=== PATIENT | male | born 1940 | race Caucasian/White ===

== ENCOUNTER 2016-09-27 06:46 | Inpatient (IN) | payer MEDICARE, BC ==
--- NOTE | 2016-09-27 07:38 | EDM.PDOC ---
ED HPI GENERAL MEDICAL PROBLEM - General Chief Complaint: Gastrointestinal Problem Stated Complaint: DIAHHREA Time Seen by Provider: 09/27/16 07:32 Source of Information: Reports: Patient, Family History Limitations: Reports: No Limitations - History of Present Illness INITIAL COMMENTS - FREE TEXT/NARRATIVE: Pt developed severe diarrhea last nite and he had 10- 15 stools. He was nauseated but he did not vomit. He had cramps but did not have severe abdomanal pain. He had eaten on the road yesterday. He has not had recent antibiotic. Onset: Other (last nite. ) Duration: Hour(s):, Colic Location: Reports: Abdomen, Other ( severe diarrhea. ) Associated Symptoms: Reports: Other (pt is having muscle cramps. ) Abdominal Pain Score (Numeric/FACES): 4 - Related Data Allergies Allergy/AdvReac Type Severity Reaction Status Date / Time tramadol HCl [From [facility]] Allergy Severe Hives Verified 09/27/16 07:16 Home Meds: Home Meds Omeprazole [priLOSEC OTC] 20 mg PO DAILY 09/08/13 [History] Magnesium 250 mg PO DAILY 10/28/15 [History] Meloxicam [Mobic] 15 mg PO DAILY 10/28/15 [History] Calcium Carbonate/Vitamin D3 [Caltrate 600+D 1500 MG-400 Units] 1 tab PO BID # 60 tablet 09/28/16 [Rx] Past Medical History HEENT History: Reports: Cataract, Impaired Vision Cardiovascular History: Reports: Other (See Below) Other Cardiovascular History: orthostatic hypotension Gastrointestinal History: Reports: GERD, Hiatal Hernia Genitourinary History: Reports: Pyelonephritis, Renal Calculus Musculoskeletal History: Reports: Fracture, Osteoarthritis Endocrine/Metabolic History: Reports: Obesity/BMI 30+ Hematologic History: Reports: Anemia, Blood Transfusion(s) - Infectious Disease History Infectious Disease History: Reports: Chicken Pox, Measles - Past Surgical History HEENT Surgical History: Reports: Cataract Surgery, Tonsillectomy Neurological Surgical History: Reports: Laminectomy, Spinal Fusion Musculoskeletal Surgical History: Reports: Arthroscopic Knee, Knee Replacement, Other (See Below) Other Musculoskeletal Surgeries/Procedures:: left elbow-staph infection Social & Family History - Tobacco Use Smoking Status *Q: Never Smoker Years of Tobacco use: 3 Packs/Tins Daily: 0.5 Second Hand Smoke Exposure: No - Caffeine Use Caffeine Use: Reports: None - Alcohol Use Days Per Week of Alcohol Use: 0 - Recreational Drug Use Recreational Drug Use: No ED ROS GENERAL - Review of Systems Review Of Systems: See Below Constitutional: Reports: Chills, Weakness HEENT: Reports: No Symptoms Respiratory: Reports: No Symptoms Cardiovascular: Reports: No Symptoms Endocrine: Reports: No Symptoms GI/Abdominal: Reports: Diarrhea, Other ( there was no blood in the stool. ) : Reports: No Symptoms Musculoskeletal: Reports: Other (Pt hurt ll over before it started. ) Skin: Reports: No Symptoms ED EXAM, GI/ABD - Physical Exam Exam: See Below Text/Narrative:: Pt arrived with body aches and he has sevre diarrhea. He is now having muscle spasms. Exam Limited By: No Limitations General Appearance: Alert, Mild Distress Eyes: Bilateral: Normal Appearance, EOMI Ears: Normal External Exam Nose: Normal Inspection Throat/Mouth: Normal Inspection Head: Atraumatic Neck: Normal Inspection Respiratory/Chest: No Respiratory Distress Cardiovascular: Regular Rate, Rhythm GI/Abdominal: Soft, Non-Tender, Hyperactive Bowel Sounds (Male) Exam: Deferred Rectal (Males) Exam: Deferred Back Exam: Normal Inspection Extremities: Normal Inspection Neurological: Alert, Oriented, Normal Cognition Psychiatric: Normal Affect Course - Vital Signs Last Recorded V/S: Last Vital Signs Temp 97.6 C H 09/28/16 07:48 Pulse 104 H 09/28/16 09:44 Resp 17 09/28/16 09:00 BP 129/80 09/28/16 09:00 Pulse Ox 94 L 09/28/16 09:00 - Orders/Labs/Meds Labs: Laboratory Tests 09/27/16 09/27/16 09/27/16 Range/Units 07:35 07:38 07:38 WBC 7.1 (4.5-11.0) K/uL RBC 4.68 (4.30-5.90) M/uL Hgb 14.5 (12.0-15.0) g/dL Hct 42.3 (40.0-54.0) % MCV 90 (80-98) fL MCH 31 (27-31) pg MCHC 34 (32-36) % Plt Count 204 (150-400) K/uL Neut % (Auto) 83 H (36-66) % Lymph % (Auto) 7 L (24-44) % [place] % (Auto) 7 H (2-6) % Eos % (Auto) 4 (2-4) % Baso % (Auto) 0 (0-1) % Sodium 141 (140-148) mmol/L Potassium 4.6 (3.6-5.2) mmol/L Chloride 107 (100-108) mmol/L Carbon Dioxide 21 (21-32) mmol/L Anion Gap 13.1 (5.0-14.0) mmol/L BUN 26 H (7-18) mg/dL Creatinine 1.5 H (0.8-1.3) mg/dL Est Cr Clr Drug Dosing 48.09 mL/min Estimated GFR (MDRD) 46 L (>60) Glucose 104 (74-106) mg/dL Calcium 7.8 L (8.5-10.1) mg/dL Magnesium (1.8-2.4) mg/dL Total Bilirubin 0.7 (0.2-1.0) mg/dL AST 20 (15-37) U/L ALT 30 (12-78) U/L Alkaline Phosphatase 58 (46-116) U/L Troponin I < 0.017 (0.000-0.056) ng/mL C-Reactive Protein (0.0-0.3) mg/dL Total Protein 7.3 (6.4-8.2) g/dL Albumin 3.8 (3.4-5.0) g/dL Globulin 3.5 (2.3-3.5) g/dL Albumin/Globulin Ratio 1.1 L (1.2-2.2) Urine Color Urine Appearance Urine pH (4.5-8.0) Ur Specific [place] (1.008-1.030) Urine Protein (NEGATIVE) mg/dL Urine Glucose (UA) (NEGATIVE) mg/dL Urine Ketones (NEGATIVE) mg/dL Urine Occult Blood (NEGATIVE) Urine Nitrite (NEGAITVE) Urine Bilirubin (NEGATIVE) Urine Urobilinogen (NORMAL) mg/dL Ur Leukocyte Esterase (NEGATIVE) Urine RBC (0-5) Urine WBC (0-5) Ur Epithelial Cells Amorphous Sediment Urine Bacteria Urine Mucus 09/27/16 09/27/16 09/27/16 Range/Units 07:38 09:48 10:44 WBC (4.5-11.0) K/uL RBC (4.30-5.90) M/uL Hgb (12.0-15.0) g/dL Hct (40.0-54.0) % MCV (80-98) fL MCH (27-31) pg MCHC (32-36) % Plt Count (150-400) K/uL Neut % (Auto) (36-66) % Lymph % (Auto) (24-44) % [place] % (Auto) (2-6) % Eos % (Auto) (2-4) % Baso % (Auto) (0-1) % Sodium (140-148) mmol/L Potassium (3.6-5.2) mmol/L Chloride (100-108) mmol/L Carbon Dioxide (21-32) mmol/L Anion Gap (5.0-14.0) mmol/L BUN (7-18) mg/dL Creatinine (0.8-1.3) mg/dL Est Cr Clr Drug Dosing mL/min Estimated GFR (MDRD) (>60) Glucose (74-106) mg/dL Calcium (8.5-10.1) mg/dL Magnesium 2.1 (1.8-2.4) mg/dL Total Bilirubin (0.2-1.0) mg/dL AST (15-37) U/L ALT (12-78) U/L Alkaline Phosphatase (46-116) U/L Troponin I (0.000-0.056) ng/mL C-Reactive Protein 0.29 (0.0-0.3) mg/dL Total Protein (6.4-8.2) g/dL Albumin (3.4-5.0) g/dL Globulin (2.3-3.5) g/dL Albumin/Globulin Ratio (1.2-2.2) Urine Color Yellow Urine Appearance Clear Urine pH 5.0 (4.5-8.0) Ur Specific [place] 1.015 (1.008-1.030) Urine Protein Negative (NEGATIVE) mg/dL Urine Glucose (UA) Normal (NEGATIVE) mg/dL Urine Ketones Negative (NEGATIVE) mg/dL Urine Occult Blood Negative (NEGATIVE) Urine Nitrite Negative (NEGAITVE) Urine Bilirubin Negative (NEGATIVE) Urine Urobilinogen Normal (NORMAL) mg/dL Ur Leukocyte Esterase Negative (NEGATIVE) Urine RBC 0-5 (0-5) Urine WBC Not seen (0-5) Ur Epithelial Cells Not seen Amorphous Sediment Not seen Urine Bacteria Not seen Urine Mucus Not seen Meds: Medications Discontinued Medications Generic Name Dose Route Start Last Admin Trade Name Freq PRN Reason Stop Dose Admin Acetaminophen 650 mg 09/27/16 13:25 Tylenol PO Q4H PRN Pain (Mild 1-3)/fever Calcium Carbonate 1 tab 09/28/16 09:00 09/28/16 08:43 Caltrate 600+D 1500 Mg-400 Units PO 1 tab BID YADIRA Administration Diltiazem HCl 10 mg 09/27/16 13:45 09/27/16 14:00 Diltiazem IVPUSH 09/27/16 13:46 10 mg ONETIME ONE Administration Enoxaparin Sodium 40 mg 09/27/16 14:00 09/27/16 14:23 Lovenox SUBCUT 40 mg Q24H YADIRA Administration Sodium Chloride 1,000 mls @ 999 mls/hr 09/27/16 07:45 09/27/16 07:47 Normal Saline IV 999 mls/hr ASDIRECTED YADIRA Administration Sodium Chloride 1,000 mls @ 999 mls/hr 09/27/16 08:30 09/27/16 08:52 Normal Saline IV 999 mls/hr ASDIRECTED YADIRA Administration Sodium Chloride 1,000 mls @ 250 mls/hr 09/27/16 11:00 Normal Saline IV ASDIRECTED YADIRA Diltiazem HCl 100 mg/ Sodium 100 mls @ 5 mls/hr 09/27/16 13:25 Chloride IV TITRATE YADIRA Protocol 5 MG/HR Sodium Chloride 1,000 mls @ 125 mls/hr 09/27/16 13:25 09/28/16 05:55 Normal Saline IV 125 mls/hr ASDIRECTED YADIRA Administration Calcium Gluconate 2 gm/ Sodium 120 mls @ 100 mls/hr 09/28/16 09:00 09/28/16 09:39 Chloride IV 09/28/16 10:11 100 mls/hr ONETIME ONE Administration Loperamide HCl 4 mg 09/27/16 08:59 09/27/16 09:44 Imodium PO 09/27/16 09:00 4 mg ONETIME ONE Administration Magnesium Oxide 200 mg 09/28/16 09:00 09/28/16 08:14 Magnesium Oxide PO 400 mg DAILY YADIRA Administration Meloxicam 15 mg 09/28/16 09:00 09/28/16 08:14 Mobic PO 15 mg DAILY YADIRA Administration Ondansetron HCl 4 mg 09/27/16 08:20 09/27/16 08:24 Zofran IVPUSH 09/27/16 08:21 4 mg ONETIME ONE Administration Ondansetron HCl 4 mg 09/27/16 13:25 09/27/16 20:57 Zofran IV 4 mg Q4H PRN Administration Nausea/Vomiting Oxycodone HCl 5 mg 09/27/16 13:25 Oxycodone PO Q4H PRN Pain (moderate 4-6) Pantoprazole Sodium 40 mg 09/28/16 07:30 09/28/16 07:35 Protonix PO 40 mg ACBREAKFAST YADIRA Administration Sodium Chloride 10 ml 09/27/16 13:25 Saline Flush FLUSH ASDIRECTED PRN Keep Vein Open - Re-Assessments/Exams Free Text/Narrative Re-Assessment/Exam: 09/27/16 08:22 pt looks dehydrated with his electrolytes. He has a normal sinus rhythm. He was tachy to start with. 09/27/16 10:45 He was found to have a pulse of 118. An ekg showed atrial fib and since that time he has been in atrial fib. He does not have a known history of atrial fib. Will plan to admit for evaluation. He is on asa and is not on coumadin therapy. . 09/27/16 10:48 Departure - Departure Time of Disposition: 09:50 Disposition: Admitted As Inpatient 67 Condition: fair Clinical Impression: Atrial fibrillation, Dehydration, Diarrhea - Discharge Information
[2016-09-27] MEDS ORDERED: Sodium Chloride 0.9% 1,000 ML IV SCH ×3 (07:45→11:00)
[2016-09-27] MEDS ORDERED: Ondansetron 4 MG/2 ML SDV IVPUSH ONE (08:20)
[2016-09-27] MEDS ORDERED: Loperamide 2 MG Cap PO ONE (08:59)
[2016-09-27] MEDS ORDERED: Diltiazem 100 MG in Sodium Chloride 0.9% 100 ML IV SCH (13:25)
[2016-09-27] MEDS ORDERED: Sodium Chloride 0.9% 10 ML Syringe FLUSH PRN (13:25)
[2016-09-27] MEDS ORDERED: oxyCODONE 5 MG Tab PO PRN (13:25)
[2016-09-27] MEDS ORDERED: Ondansetron 4 MG/2 ML SDV IV PRN (13:25)
[2016-09-27] MEDS ORDERED: Acetaminophen 325 MG Tab PO PRN (13:25)
[2016-09-27] MEDS ORDERED: Diltiazem 25 MG/5 ML SDV IVPUSH ONE (13:45)
--- NOTE | 2016-09-27 13:46 | PCM.HP ---
H&P History of Present Illness - General Date of Service: 09/27/16 Admit Problem/Dx: Admission Diagnosis/Problem Admission Diagnosis/Problem Atrial fibrillation Source of Information: Patient, Family, Provider, RN Notes Reviewed History Limitations: Reports: No Limitations - History of Present Illness Initial Comments - Free Text/Narative: This patient is a 76-year-old gentleman who presented to the emergency room this morning after several hours of profuse watery diarrhea. On initial evaluation was noted to be in nature fibrillation with rapid ventricular response rates in the 120 to 1:30 range. He spontaneously converted to sinus rhythm but since then has gone back into the atrial fibrillation with rapid ventricular response. He became ill last night and had diarrhea throughout the night, this morning is very weak and dehydrated. Denies any fevers chills or sweats, he has had nausea but no significant vomiting. He thinks that he has had a previous history of atrial fibrillation which was documented in [place]. At that time also had positional vertigo and orthostatic hypotension. He does have the records from those visits and will bring them in for further review. To this point has not been treated with oral anticoagulation. Abdominal Pain Score (Numeric/FACES): 4 - Related Data Allergies/Adverse Reactions: Allergies Allergy/AdvReac Type Severity Reaction Status Date / Time tramadol HCl [From [facility]] Allergy Severe Hives Verified 09/27/16 07:16 Home Medications: Home Meds Omeprazole [priLOSEC OTC] 20 mg PO DAILY 09/08/13 [History] Magnesium 250 mg PO DAILY 10/28/15 [History] Meloxicam [Mobic] 15 mg PO DAILY 10/28/15 [History] Past Medical History HEENT History: Reports: Cataract, Impaired Vision Cardiovascular History: Reports: Other (See Below) Other Cardiovascular History: orthostatic hypotension Gastrointestinal History: Reports: GERD, Hiatal Hernia Genitourinary History: Reports: Pyelonephritis, Renal Calculus Musculoskeletal History: Reports: Fracture, Osteoarthritis Endocrine/Metabolic History: Reports: Obesity/BMI 30+ Hematologic History: Reports: Anemia, Blood Transfusion(s) - Infectious Disease History Infectious Disease History: Reports: Chicken Pox, Measles - Past Surgical History HEENT Surgical History: Reports: Cataract Surgery, Tonsillectomy Neurological Surgical History: Reports: Laminectomy, Spinal Fusion Musculoskeletal Surgical History: Reports: Arthroscopic Knee, Knee Replacement, Other (See Below) Other Musculoskeletal Surgeries/Procedures:: left elbow-staph infection Social & Family History - Tobacco Use Smoking Status *Q: Never Smoker Years of Tobacco use: 3 Packs/Tins Daily: 0.5 Second Hand Smoke Exposure: No - Caffeine Use Caffeine Use: Reports: None - Alcohol Use Days Per Week of Alcohol Use: 0 - Recreational Drug Use Recreational Drug Use: No H&P Review of Systems - Review of Systems: Review Of Systems: See Below General: Reports: Weakness. Denies: Fever, Chills HEENT: Reports: No Symptoms Pulmonary: Reports: No Symptoms Cardiovascular: Reports: No Symptoms Gastrointestinal: Reports: Diarrhea, Nausea. Denies: Abdominal Pain, Black Stool, Bloody Stool, Difficulty Swallowing, Hematemesis Genitourinary: Reports: No Symptoms Musculoskeletal: Reports: No Symptoms Skin: Reports: No Symptoms Psychiatric: Reports: No Symptoms Neurological: Reports: No Symptoms Hematologic/Lymphatic: Reports: No Symptoms Immunologic: Reports: No Symptoms Exam - Exam Exam: See Below - Vital Signs Vital Signs: Last Vital Signs Temp 95.6 F 09/27/16 07:12 Pulse 122 H 09/27/16 13:23 Resp 18 09/27/16 13:23 BP 120/68 09/27/16 13:23 Pulse Ox 89 L 09/27/16 13:23 Weight: 243 lb 13.3 oz - Exam General: Alert, Oriented, Cooperative, Mild Distress HEENT: Conjunctiva Clear, Hearing Intact, Nares Patent, Normal Nasal Septum, Posterior Pharynx Clear, Pupils Equal, Pupils Reactive. No: Mucosa Moist & [place] Neck: Supple, Trachea Midline, +2 Carotid Pulse wo Bruit Lungs: Clear to Auscultation, Normal Respiratory Effort Cardiovascular: Normal S1, Normal S2, Irregular Rhythm, Tachycardia. No: Bradycardia, Systolic Murmur, Diastolic Murmur Abdomen: Normal Bowel Sounds, Soft. No: Organomegaly, Peritoneal Signs, Distention, Guarding, Rigidity, Rebound, Tenderness Back Exam: Normal Inspection, Full Range of Motion, NT Extremities: 3, Normal Inspection, 10 Skin: Warm, Dry, Intact Neurological: Cranial Nerves Intact, Strength Equal Bilateral, Normal Speech, Normal Tone, Sensation Intact. No: Focal Deficit Neuro Extensive - Mental Status: Alert, Oriented x3, Normal Mood/Affect, Normal Cognition, Memory Intact - Patient Data Result Diagrams: 09/27/16 07:38 09/27/16 07:38 *Q Meaningful Use (ADM) - VTE *Q VTE Criteria *Q: - VTE Risk Assess *Q Each Risk Factor Represents 1 Point: Obesity (BMI greater than 30) Total Score 1 Point Risk Factors: 1 Each Risk Factor Represents 2 Points: None Total Score 2 Point Risk Factors: 0 Each Risk Factor Represents 3 Points: Age 75 Years or Greater Total Score 3 Point Risk Factors: 3 Each Risk Factor Represents 5 Points: None Total Score 5 Point Risk Factors: 0 Venous Thromboembolism Risk Factor Score *Q: 4 - Stroke *Q Stroke Criteria *Q: - AMI *Q AMI Criteria *Q: Problem List Initiated/Reviewed/Updated: Yes Orders Last 24hrs: Active Orders 24 hr Category Date Time Status Patient Status [ADT] Routine ADT 09/27/16 13:25 Active Intake and Output [RC] QSHIFT Care 09/27/16 13:25 Active Notify Provider Vital Signs [RC] ASDIRECTED Care 09/27/16 13:25 Active Oxygen Therapy [RC] PRN Care 09/27/16 13:25 Active Peripheral IV Care [RC] . DIRECTED Care 09/27/16 13:25 Active Up ad Danii [RC] ASDIRECTED Care 09/27/16 13:25 Active VTE/DVT Education [RC] Per Unit Routine Care 09/27/16 13:25 Active Vital Signs [RC] Q4H Care 09/27/16 13:25 Active Regular Diet [DIET] Diet 09/27/16 Lunch Active BASIC METABOLIC PANEL,BMP [CHEM] AM Lab 09/28/16 05:11 Ordered CBC WITH AUTO DIFF [HEME] AM Lab 09/28/16 05:11 Ordered TSH ULTRASENSITIVE [CHEM] Timed Lab 09/28/16 05:00 Ordered Acetaminophen [Tylenol] Med 09/27/16 13:25 Active 650 mg PO Q4H PRN Diltiazem Med 09/27/16 13:45 Once 10 mg IVPUSH ONETIME ONE Diltiazem [Cardizem] 100 mg Med 09/27/16 13:25 Active Sodium Chloride 0.9% [Normal Saline] 100 ml IV TITRATE Enoxaparin [Lovenox] Med 09/27/16 14:00 Active 40 mg SUBCUT Q24H Ondansetron [Zofran] Med 09/27/16 13:25 Active 4 mg IV Q4H PRN Sodium Chloride 0.9% [Normal Saline] 1,000 ml Med 09/27/16 13:25 Active IV ASDIRECTED Sodium Chloride 0.9% [Saline Flush] Med 09/27/16 13:25 Active 10 ml FLUSH ASDIRECTED PRN oxyCODONE Med 09/27/16 13:25 Active 5 mg PO Q4H PRN Peripheral IV Insertion Adult [OM.PC] Routine Oth 09/27/16 13:25 Ordered Resuscitation Status Routine Resus Stat 09/27/16 12:51 Ordered Medication Orders Acetaminophen (Tylenol) 650 mg PO Q4H PRN PRN Reason: Pain (Mild 1-3)/fever Diltiazem HCl (Diltiazem) 10 mg IVPUSH ONETIME ONE Stop: 09/27/16 13:46 Enoxaparin Sodium (Lovenox) 40 mg SUBCUT Q24H YADIRA Diltiazem HCl 100 mg/ Sodium (Chloride) 100 mls @ 5 mls/hr IV TITRATE YADIRA; 5 MG /HR PRN Reason: Protocol Sodium Chloride (Normal Saline) 1,000 mls @ 125 mls/hr IV ASDIRECTED YADIRA Magnesium Oxide (Magnesium Oxide) 200 mg PO DAILY YADIRA Meloxicam (Mobic) 15 mg PO DAILY YADIRA Ondansetron HCl (Zofran) 4 mg IV Q4H PRN PRN Reason: Nausea/Vomiting Oxycodone HCl (Oxycodone) 5 mg PO Q4H PRN PRN Reason: Pain (moderate 4-6) Pantoprazole Sodium (Protonix) 40 mg PO ACBREAKFAST YADIRA Sodium Chloride (Saline Flush) 10 ml FLUSH ASDIRECTED PRN PRN Reason: Keep Vein Open Assessment/Plan Comment:: ASSESSMENT AND PLAN ATRIAL FIBRILLATION WITH RAPID VENTRICULAR RESPONSE-he thinks he had a previous episode this spring when in [place], will bring records in for further review. Likely precipitated by current viral gastroenteritis, duration unknown. [id number] score is 2 indicating that he should be considered for anticoagulation. -Consider oral anticoagulation, recommended the patient, he is considering -IV Cardizem bolus and infusion for rate control VIRAL GASTROENTERITIS-diarrhea since last night associated with nausea but no significant vomiting. Denies fevers chills or sweats -Antiemetic therapy as needed -IV fluids for hydration HISTORY OF ORTHOSTATIC HYPOTENSION -Review outside records MAINTENANCE ISSUES -DVT prophylaxis; Lovenox 40 mg subcutaneous daily -GI prophylaxis; continue outpatient PPI therapy -[place] catheter; not indicated -Nutrition; regular diet -Nicotine dependence; not required CODE STATUS-FULL CODE ADMISSION STATUS-patient will be admitted to inpatient status, expect at least a 2 night hospital stay for evaluation and management of problems as outlined above. At the time of this admission I do not reasonably expected evaluation and management of this problem will require more than a 96 hour hospital stay. DISPOSITION-anticipate discharge to home after the hospital stay. PRIMARY CARE PROVIDER-
[2016-09-27] MEDS: Sodium Chloride 0.9% 1,000 ML IV SCH ×2 (13:54→21:54)
[2016-09-27] MEDS ORDERED: Enoxaparin 40 MG/0.4 ML Syringe SUBCUT SCH (14:00)
[2016-09-28] MEDS: Sodium Chloride 0.9% 1,000 ML IV SCH (05:55)
[2016-09-28] MEDS ORDERED: Pantoprazole 40 MG Tab.CR PO SCH (07:30)
[2016-09-28] MEDS: Calcium Gluconate 2 GM in Sodium Chloride 0.9% 100 ML IV ONE ×2 (08:43→09:39)
[2016-09-28] MEDS ORDERED: Magnesium Oxide 400 MG Tab PO SCH (09:00)
[2016-09-28] MEDS ORDERED: Meloxicam 7.5 MG Tab PO SCH (09:00)
[2016-09-28] MEDS ORDERED: Calcium Carbonate/Vitamin D3 1500 MG-400 Units Tab PO SCH (09:00)
[2016-09-28 09:43] VITALS: BP 129/80
--- NOTE | 2016-09-28 10:10 | PCM.DCSUM1 ---
Discharge Summary - Hospital Course Brief History: Mr. Gallardo is a 76-year-old gentleman who is admitted through the emergency department with dehydration secondary to viral gastroenteritis as well as atrial fibrillation with rapid ventricular response. - Discharge Data Discharge Date: 09/28/16 Discharge Disposition: Home, Self-Care 01 Condition: Fair - Discharge Diagnosis/Problem(s) (1) Atrial fibrillation with rapid ventricular response SNOMED Code(s): 764149205928006 ICD Code: I48.91 - UNSPECIFIED ATRIAL FIBRILLATION Status: Acute Current Visit: Yes (2) 1St degree AV block SNOMED Code(s): 493058711 ICD Code: I44.0 - ATRIOVENTRICULAR BLOCK, FIRST DEGREE Status: Acute Current Visit: Yes (3) Wenckebach second degree AV block SNOMED Code(s): 13253963 ICD Code: I44.1 - ATRIOVENTRICULAR BLOCK, SECOND DEGREE Status: Acute Current Visit: Yes (4) Viral gastroenteritis SNOMED Code(s): 430456441 ICD Code: A08.4 - VIRAL INTESTINAL INFECTION, UNSPECIFIED Status: Acute Current Visit: Yes (5) Hypocalcemia SNOMED Code(s): 6727085 ICD Code: E83.51 - HYPOCALCEMIA Status: Acute Current Visit: Yes - Patient Summary/Data Hospital Course: Mr. Gallardo is a 76-year-old gentleman who presented to the emergency department with a 12 hour history of severe nausea and diarrhea. Laboratory tests were obtained and unremarkable and he was felt to have viral gastroenteritis. He was also found to have atrial fibrillation with rapid ventricular response, he converted spontaneously to sinus rhythm in the emergency department and then went back into the atrial fibrillation. He has a recent history of being noted to have sinus tachycardia and was evaluated when he was in [place]. Holter monitor was obtained which did show resting sinus tachycardia increased with activity. He was seen and evaluated by cardiology and was felt to have significant orthostatic hypotension which resulted in compensatory sinus tachycardia. He was treated with compression hose. Since returning from [place] he's felt well and has been able to be very active without significant symptoms. On admission to the hospital he was placed on IV Cardizem infusion and shortly after that did convert to sinus rhythm. The Cardizem infusion was discontinued and he returned again to atrial fibrillation. Infusion was restarted, and again he converted to sinus rhythm. Cardizem was continued and later in the evening was noted to have first-degree AV block as well as second degree AV block type I. These seemed to resolve after the Cardizem was discontinued. Throughout the rest of his hospital stay was noted to have intermittent sinus tachycardia but no obvious recurrence of atrial fibrillation. Following morning he was feeling significantly improved, initially was felt that he would require 2 night hospital stay but because of his marked improvement in diarrhea and nausea he will be discharged home after only one day. TSH was obtained and found to be within normal range. Outpatient echocardiogram and Holter monitor will be obtained and he will be scheduled for followup appointment with Dr. Banuelos within one week. Activity will be as tolerated and he will resume his usual diet. Likely that he will require followup with cardiology concerning his orthostatic hypotension as well as cardiac dysrhythmias. - Patient Instructions Diet: Usual Diet as Tolerated Activity: As Tolerated Other/Special Instructions: Please schedule outpatient echocardiogram for tomorrow September 29. Please schedule 24 hour Holter monitor as soon as possible. Please schedule followup appointment with Dr. Haynes within one week. - Discharge Plan Prescriptions/Med Rec: Calcium Carbonate/Vitamin D3 [Caltrate 600+D 1500 MG-400 Units] 1 tab PO BID # 60 tablet Home Medications: Home Meds Omeprazole [priLOSEC OTC] 20 mg PO DAILY 09/08/13 [History] Magnesium 250 mg PO DAILY 10/28/15 [History] Meloxicam [Mobic] 15 mg PO DAILY 10/28/15 [History] Calcium Carbonate/Vitamin D3 [Caltrate 600+D 1500 MG-400 Units] 1 tab PO BID # 60 tablet 09/28/16 [Rx] Forms: ED Department Discharge Referrals: Geovani Lafleur PA [Primary Care Provider] - Man Haynes MD [Family Provider] - - Patient Data Vitals - Most Recent: Last Vital Signs Temp 207.7 F H 09/28/16 07:48 Pulse 104 H 09/28/16 09:44 Resp 17 09/28/16 09:00 BP 129/80 09/28/16 09:00 Pulse Ox 94 L 09/28/16 09:00 Weight - Most Recent: 243 lb 13.3 oz I&O - Last 24 hours: Intake & Output 09/27/16 09/28/16 09/28/16 22:59 06:59 14:59 Intake Total 1147 1478 Balance 1147 1478 Lab Results - Last 24 hrs: Laboratory Results - last 24 hr 09/28/16 09/28/16 09/28/16 Range/Units 05:53 05:53 05:53 WBC 4.1 L (4.5-11.0) K/uL RBC 3.88 L (4.30-5.90) M/uL Hgb 11.9 L D (12.0-15.0) g/dL Hct 36.1 L (40.0-54.0) % MCV 93 (80-98) fL MCH 31 (27-31) pg MCHC 33 (32-36) % Plt Count 168 (150-400) K/uL Neut % (Auto) 56 (36-66) % Lymph % (Auto) 27 (24-44) % [place] % (Auto) 12 H (2-6) % Eos % (Auto) 5 H (2-4) % Baso % (Auto) 0 (0-1) % Sodium 142 (140-148) mmol/L Potassium 4.3 (3.6-5.2) mmol/L Chloride 110 H (100-108) mmol/L Carbon Dioxide 23 (21-32) mmol/L Anion Gap 13.3 (5.0-14.0) mmol/L BUN 17 (7-18) mg/dL Creatinine 1.4 H (0.8-1.3) mg/dL Est Cr Clr Drug Dosing 51.52 mL/min Estimated GFR (MDRD) 49 L (>60) Glucose 99 (74-106) mg/dL Calcium 6.9 L* (8.5-10.1) mg/dL POC WB Ioniz Calcium (1.12-1.32) mmol/L TSH, Ultra Sensitive 1.340 (0.358-3.740) uIU/mL 09/28/16 Range/Units 06:41 WBC (4.5-11.0) K/uL RBC (4.30-5.90) M/uL Hgb (12.0-15.0) g/dL Hct (40.0-54.0) % MCV (80-98) fL MCH (27-31) pg MCHC (32-36) % Plt Count (150-400) K/uL Neut % (Auto) (36-66) % Lymph % (Auto) (24-44) % [place] % (Auto) (2-6) % Eos % (Auto) (2-4) % Baso % (Auto) (0-1) % Sodium (140-148) mmol/L Potassium (3.6-5.2) mmol/L Chloride (100-108) mmol/L Carbon Dioxide (21-32) mmol/L Anion Gap (5.0-14.0) mmol/L BUN (7-18) mg/dL Creatinine (0.8-1.3) mg/dL Est Cr Clr Drug Dosing mL/min Estimated GFR (MDRD) (>60) Glucose (74-106) mg/dL Calcium (8.5-10.1) mg/dL POC WB Ioniz Calcium 1.04 L (1.12-1.32) mmol/L TSH, Ultra Sensitive (0.358-3.740) uIU/mL Med Orders - Current: Current Medications Acetaminophen (Tylenol) 650 mg PO Q4H PRN PRN Reason: Pain (Mild 1-3)/fever Calcium Carbonate (Caltrate 600+D 1500 Mg-400 Units) 1 tab PO BID [facility] Last Admin: 09/28/16 08:43 Dose: 1 tab Enoxaparin Sodium (Lovenox) 40 mg SUBCUT Q24H [facility] Last Admin: 09/27/16 14:23 Dose: 40 mg Sodium Chloride (Normal Saline) 1,000 mls @ 125 mls/hr IV ASDIRECTED [facility] Last Admin: 09/28/16 05:55 Dose: 125 mls/hr Calcium Gluconate 2 gm/ Sodium (Chloride) 120 mls @ 100 mls/hr IV ONETIME ONE Stop: 09/28/16 10:11 Last Admin: 09/28/16 09:39 Dose: 100 mls/hr Magnesium Oxide (Magnesium Oxide) 200 mg PO DAILY [facility] Last Admin: 09/28/16 08:14 Dose: 400 mg Meloxicam (Mobic) 15 mg PO DAILY [facility] Last Admin: 09/28/16 08:14 Dose: 15 mg Ondansetron HCl (Zofran) 4 mg IV Q4H PRN PRN Reason: Nausea/Vomiting Last Admin: 09/27/16 20:57 Dose: 4 mg Oxycodone HCl (Oxycodone) 5 mg PO Q4H PRN PRN Reason: Pain (moderate 4-6) Pantoprazole Sodium (Protonix) 40 mg PO ACBREAKFAST YADIRA Last Admin: 09/28/16 07:35 Dose: 40 mg Sodium Chloride (Saline Flush) 10 ml FLUSH ASDIRECTED PRN PRN Reason: Keep Vein Open Discontinued Medications Diltiazem HCl (Diltiazem) 10 mg IVPUSH ONETIME ONE Stop: 09/27/16 13:46 Last Admin: 09/27/16 14:00 Dose: 10 mg Sodium Chloride (Normal Saline) 1,000 mls @ 999 mls/hr IV ASDIRECTED YADIRA Last Admin: 09/27/16 07:47 Dose: 999 mls/hr Sodium Chloride (Normal Saline) 1,000 mls @ 999 mls/hr IV ASDIRECTED YADIRA Last Admin: 09/27/16 08:52 Dose: 999 mls/hr Sodium Chloride (Normal Saline) 1,000 mls @ 250 mls/hr IV ASDIRECTED YADIRA Diltiazem HCl 100 mg/ Sodium (Chloride) 100 mls @ 5 mls/hr IV TITRATE YADIRA; 5 MG /HR PRN Reason: Protocol Loperamide HCl (Imodium) 4 mg PO ONETIME ONE Stop: 09/27/16 09:00 Last Admin: 09/27/16 09:44 Dose: 4 mg Ondansetron HCl (Zofran) 4 mg IVPUSH ONETIME ONE Stop: 09/27/16 08:21 Last Admin: 09/27/16 08:24 Dose: 4 mg *Q Meaningful Use (DIS) - VTE *Q VTE Criteria *Q: - Stroke *Q Stroke Criteria *Q: - AMI *Q AMI Criteria *Q:
== END 2016-09-28 11:25 | disposition home or self-care (01) | DRG 392 ==
LOC: JP.ED 06:46 → JP.ICU 12:50
PROVIDERS: ADMIT Hospitalist; ATTEND Hospitalist
DX: A08.4 Viral intestinal infection, unspecified (principal); E86.0 Dehydration; I48.91 Unspecified atrial fibrillation; R19.7 Diarrhea, unspecified; I44.0 Atrioventricular block, first degree; I44.1 Atrioventricular block, second degree; E83.51 Hypocalcemia; M19.90 Unspecified osteoarthritis, unspecified site; K21.9 Gastro-esophageal reflux disease without esophagitis; H54.7 Unspecified visual loss; Z88.8 Allergy status to other drugs, medicaments and biological substances; I95.1 Orthostatic hypotension
CPT/HCPCS: 36415; 80053; 81001; 83735; 84484; 85025; 86140; 87493; 93005; 96361; 96374; 99285; A9270; J2405; J7040 ×2; 80048; 82330; 84443; 93010; 93225; 93226; J0610; J1650; J3490; J7030

== ENCOUNTER 2016-10-02 11:48 | Emergency (ER) | payer MEDICARE, BC ==
--- NOTE | 2016-10-02 15:55 | EDM.PDOC ---
ED HPI GENERAL MEDICAL PROBLEM - General Chief Complaint: Cardiovascular Problem Stated Complaint: LT CHEST PRESSURE, SWEATING Time Seen by Provider: 10/02/16 11:57 Source of Information: Reports: Patient History Limitations: Reports: No Limitations - History of Present Illness INITIAL COMMENTS - FREE TEXT/NARRATIVE: This gentleman comes to the hospital for symptoms complaints of feeling faint. He was in [employer] today and he suddenly felt faint like maybe he would pass out and felt sweaty. He was standing at the time. He felt some vague sharp pain in the upper part of the chest when he would take a deep breath. Disorder radiated through to the back that just lasts a little while. He felt very weak. He did not have any sensation of spinning or disequilibrium. His vision didn't go black but just seemed to sort of weak and maybe like tunnel vision. He denies any palpitations. He does have a history of atrial fibrillation in the past he had some diarrhea recently also but there's been no vomiting. He denies any nausea today. Sometime recently when he was in [place] he had some orthostatic hypotension and saw a bearing ring assembler but was not put on any medications. For the past 3 weeks he's been working outside a lot. He says she 's been eating and drinking normally. He does have some occasional abdominal gas and belching. At the time he was seen in the ER he feels pretty much back to normal. - Related Data Allergies Allergy/AdvReac Type Severity Reaction Status Date / Time tramadol HCl [From Ultram] Allergy Severe Hives Verified 09/27/16 07:16 Home Meds: Home Meds Omeprazole [priLOSEC OTC] 20 mg PO DAILY 09/08/13 [History] Magnesium 250 mg PO DAILY 10/28/15 [History] Meloxicam [Mobic] 15 mg PO DAILY 10/28/15 [History] Calcium Carbonate/Vitamin D3 [Caltrate 600+D 1500 MG-400 Units] 1 tab PO BID # 60 tablet 09/28/16 [Rx] Aspirin [Adult Low Dose Aspirin EC] 81 mg PO DAILY 10/02/16 [History] Meloxicam [Mobic] 15 mg PO DAILY 10/02/16 [History] Past Medical History HEENT History: Reports: Cataract, Impaired Vision Cardiovascular History: Reports: Afib, Other (See Below) Other Cardiovascular History: orthostatic hypotension Gastrointestinal History: Reports: GERD, Hiatal Hernia Genitourinary History: Reports: Pyelonephritis, Renal Calculus Musculoskeletal History: Reports: Fracture, Osteoarthritis Endocrine/Metabolic History: Reports: Obesity/BMI 30+ Hematologic History: Reports: Anemia, Blood Transfusion(s) - Infectious Disease History Infectious Disease History: Reports: Chicken Pox, Measles - Past Surgical History HEENT Surgical History: Reports: Cataract Surgery, Tonsillectomy Neurological Surgical History: Reports: Laminectomy, Spinal Fusion Musculoskeletal Surgical History: Reports: Arthroscopic Knee, Knee Replacement, Other (See Below) Other Musculoskeletal Surgeries/Procedures:: left elbow-staph infection Social & Family History - Tobacco Use Smoking Status *Q: Never Smoker Years of Tobacco use: 3 Packs/Tins Daily: 0.5 Second Hand Smoke Exposure: No - Caffeine Use Caffeine Use: Reports: None - Alcohol Use Days Per Week of Alcohol Use: 0 - Recreational Drug Use Recreational Drug Use: No ED ROS GENERAL - Review of Systems Review Of Systems: See Below Constitutional: Reports: Weakness, Diaphoresis HEENT: Reports: No Symptoms Respiratory: Reports: No Symptoms Cardiovascular: Reports: Chest Pain Endocrine: Reports: No Symptoms GI/Abdominal: Reports: Diarrhea (Recently. None now) : Reports: No Symptoms Musculoskeletal: Reports: No Symptoms Skin: Reports: No Symptoms Neurological: Reports: No Symptoms Psychiatric: Reports: No Symptoms Hematologic/Lymphatic: Reports: No Symptoms Immunologic: Reports: No Symptoms ED EXAM, GENERAL - Physical Exam Exam: See Below Exam Limited By: No Limitations General Appearance: Alert, WD/WN, No Apparent Distress Eye Exam: Bilateral Eye: EOMI, PERRL Ears: Normal External Exam, Normal TMs Nose: Normal Inspection Throat/Mouth: Normal Oropharynx Head: Atraumatic Respiratory/Chest: Lungs Clear Cardiovascular: Normal Peripheral Pulses, Regular Rate, Rhythm Peripheral Pulses: 2+: Radial (L), Radial (R), Posterior Tibial (L), Posterior Tibial (R) GI/Abdominal: Normal Bowel Sounds, Soft, Non-Tender Extremities: Normal Inspection Neurological: Alert, Oriented, CN II-XII Intact, Normal Cognition, No Motor/ Sensory Deficits Psychiatric: Normal Affect Skin Exam: Warm, Dry Course - Vital Signs Last Recorded V/S: Last Vital Signs Temp 36.1 C 10/02/16 12:19 Pulse 89 10/02/16 12:19 Resp 16 10/02/16 12:19 BP 123/89 10/02/16 12:19 Pulse Ox 96 10/02/16 12:19 Orthostatic Blood Pressure [ 117/80 Standing] Orthostatic Blood Pressure [ 114/83 Sitting] Orthostatic Blood Pressure [ 123/75 Supine] - Orders/Labs/Meds Orders: Active Orders 24 hr Category Date Time Status EKG Documentation Completion [RC] ASDIRECTED Care 10/02/16 12:18 Active EKG Documentation Completion [RC] ASDIRECTED Care 10/02/16 14:29 Active Orthostatic Vital Signs [RC] ASDIRECTED Care 10/02/16 12:31 Active Chest 1V Frontal [CR] Urgent Exams 10/02/16 12:18 Taken EKG 12 Lead [EK] Urgent Ther 10/02/16 12:17 Ordered EKG 12 Lead [EK] Urgent Ther 10/02/16 14:29 Ordered Labs: Laboratory Tests 10/02/16 10/02/16 10/02/16 Range/Units 12:35 12:35 13:34 WBC 5.4 (4.5-11.0) K/uL RBC 4.18 L (4.30-5.90) M/uL Hgb 13.2 (12.0-15.0) g/dL Hct 38.1 L (40.0-54.0) % MCV 91 (80-98) fL MCH 32 H (27-31) pg MCHC 35 (32-36) % Plt Count 214 (150-400) K/uL Neut % (Auto) 56 (36-66) % Lymph % (Auto) 31 (24-44) % [place] % (Auto) 8 H (2-6) % Eos % (Auto) 4 (2-4) % Baso % (Auto) 1 (0-1) % D-Dimer, Quantitative 199 (0.0-400.0) ng/mL Sodium 142 (140-148) mmol/L Potassium 4.6 (3.6-5.2) mmol/L Chloride 107 (100-108) mmol/L Carbon Dioxide 25 (21-32) mmol/L Anion Gap 9.7 (5.0-14.0) mmol/L BUN 21 H (7-18) mg/dL Creatinine 1.6 H (0.8-1.3) mg/dL Est Cr Clr Drug Dosing 45.08 mL/min Estimated GFR (MDRD) 42 L (>60) Glucose 99 (74-106) mg/dL Calcium 8.2 L D (8.5-10.1) mg/dL Total Bilirubin 0.4 (0.2-1.0) mg/dL AST 24 (15-37) U/L ALT 29 (12-78) U/L Alkaline Phosphatase 56 (46-116) U/L Troponin I < 0.017 (0.000-0.056) ng/mL Total Protein 6.8 (6.4-8.2) g/dL Albumin 3.6 (3.4-5.0) g/dL Globulin 3.2 (2.3-3.5) g/dL Albumin/Globulin Ratio 1.1 L (1.2-2.2) / Range/Units 14:32 WBC (4.5-11.0) K/uL RBC (4.30-5.90) M/uL Hgb (12.0-15.0) g/dL Hct (40.0-54.0) % MCV (80-98) fL MCH (27-31) pg MCHC (32-36) % Plt Count (150-400) K/uL Neut % (Auto) (36-66) % Lymph % (Auto) (24-44) % [place] % (Auto) (2-6) % Eos % (Auto) (2-4) % Baso % (Auto) (0-1) % D-Dimer, Quantitative (0.0-400.0) ng/mL Sodium (140-148) mmol/L Potassium (3.6-5.2) mmol/L Chloride (100-108) mmol/L Carbon Dioxide (21-32) mmol/L Anion Gap (5.0-14.0) mmol/L BUN (7-18) mg/dL Creatinine (0.8-1.3) mg/dL Est Cr Clr Drug Dosing mL/min Estimated GFR (MDRD) (>60) Glucose (74-106) mg/dL Calcium (8.5-10.1) mg/dL Total Bilirubin (0.2-1.0) mg/dL AST (15-37) U/L ALT (12-78) U/L Alkaline Phosphatase (46-116) U/L Troponin I < 0.017 (0.000-0.056) ng/mL Total Protein (6.4-8.2) g/dL Albumin (3.4-5.0) g/dL Globulin (2.3-3.5) g/dL Albumin/Globulin Ratio (1.2-2.2) - Re-Assessments/Exams Free Text/Narrative Re-Assessment/Exam: 10/02/16 16:07 2 EKGs were done on this patient the first shows sinus rhythm 72 beats per minute the QRS is showed an early transition in V2 probably that's lead placement because the B1 B2 were placed below the chest a second EKG done about 2 hours later it was identical. D-dimer and 2 troponins have been negative and orthostatics were also negative. Patient feels just fine. He was advised that nothing has been found there is no kind of dysrhythmias is no evidence of any kind of cardiac ischemia no evidence of a blood clot and no evidence of any kind of dehydration. If he has more symptoms please return to the ER or follow up with his Dr. Departure - Departure Time of Disposition: 15:53 Disposition: Home, Self-Care 01 Condition: fair Clinical Impression: Postural dizziness with near syncope Instructions: Near-Syncope, [id number], Dizziness, [id number] Referrals: Man Haynes MD [Primary Care Provider] - Forms: ED Department Discharge Additional Instructions: Continue all your usual medications. Be sure you get plenty of water to drink every day. If you have more symptoms and suddenly feel like you're going to pass out be sure to sit down quickly or bends over at the waist and so forth and then be reevaluated. We will be happy to see you back in the ER again. Otherwise followup with your Dr. - My Orders Last 24 Hours: My Active Orders 10/02/16 12:17 EKG 12 Lead [EK] Urgent 10/02/16 12:18 EKG Documentation Completion [RC] ASDIRECTED Chest 1V Frontal [CR] Urgent 10/02/16 12:31 Orthostatic Vital Signs [RC] ASDIRECTED 10/02/16 14:29 EKG Documentation Completion [RC] ASDIRECTED EKG 12 Lead [EK] Urgent - Assessment/Plan Last 24 Hours: My Active Orders 10/02/16 12:17 EKG 12 Lead [EK] Urgent 10/02/16 12:18 EKG Documentation Completion [RC] ASDIRECTED Chest 1V Frontal [CR] Urgent 10/02/16 12:31 Orthostatic Vital Signs [RC] ASDIRECTED 10/02/16 14:29 EKG Documentation Completion [RC] ASDIRECTED EKG 12 Lead [EK] Urgent
[2016-10-02 16:22] VITALS: BP 117/64
--- NOTE | 2016-10-03 08:29 | CR ---
Chest 1V Frontal HISTORY: No Clinical Info FINDINGS: Heart size within normal limits. Pulmonary vasculature within normal limits. No evidence f or focal consolidation or cardiopulmonary process. IMPRESSION: No radiographic evidence for acute cardiopulmonary process.
== END 2016-10-02 16:10 | disposition home or self-care (01) ==
LOC: JP.ED 11:48
DX: R55 Syncope and collapse (principal); I48.91 Unspecified atrial fibrillation; K21.9 Gastro-esophageal reflux disease without esophagitis; M19.90 Unspecified osteoarthritis, unspecified site; E66.9 Obesity, unspecified; Z88.8 Allergy status to other drugs, medicaments and biological substances; Z79.82 Long term (current) use of aspirin; Z79.899 Other long term (current) drug therapy; Z68.31 Body mass index [BMI] 31.0-31.9, adult; Z98.49 Cataract extraction status, unspecified eye; Z98.890 Other specified postprocedural states; Z96.659 Presence of unspecified artificial knee joint
CPT/HCPCS: 36415; 71010; 71010-26; 80053; 84484; 85025; 85379; 93005; 93010; 99284; 99284-25

== ENCOUNTER 2017-01-21 17:15 | Emergency (ER) | payer MEDICARE, BC ==
[2017-01-21 18:23] VITALS: BP 144/86
--- NOTE | 2017-01-21 19:25 | EDM.PDOC ---
ED HPI GENERAL MEDICAL PROBLEM - General Chief Complaint: Upper Extremity Injury/Pain Stated Complaint: HURT RT SHOULDER Time Seen by Provider: 01/21/17 18:33 Source of Information: Reports: Patient History Limitations: Reports: No Limitations - History of Present Illness INITIAL COMMENTS - FREE TEXT/NARRATIVE: History of present illness: [76-year-old male presenting with history of a tree branch falling on top of his right shoulder. He was working with somebody was coming off a limbal large limb and it fell onto his right shoulder. No other injuries he is complaining of pain on top of his right shoulder.] Review of systems: As per history of present illness and below otherwise all systems reviewed and negative. Past medical history: As per history of present illness and as reviewed below otherwise noncontributory. Surgical history: As per history of present illness and as reviewed below otherwise noncontributory. Social history: No reported history of drug or alcohol abuse. Family history: As per history of present illness and as reviewed below otherwise noncontributory. Physical exam: HEENT: Atraumatic, normocephalic, pupils reactive, negative for conjunctival pallor or scleral icterus, mucous membranes moist, throat clear, neck supple, nontender, trachea midline. Lungs: Clear to auscultation, breath sounds equal bilateraly Heart: S1S2, regular, negative for clicks, rubs, or JVD. Abdomen: Soft, nondistended, nontender. Negative for masses or hepatosplenomegaly. Extremities: Atraumatic, negative for cords or calf pain. Neurovascular unremarkable. He does have pain to palpation on the top of his right shoulder especially in the region of his before meals joint Neuro: Awake, alert, oriented. Cranial nerves II through XII unremarkable. Cerebellum unremarkable. Motor and sensory unremarkable throughout. Exam nonfocal. Diagnostics: [X-rays of the right shoulder reveal no fractures] Therapeutics: [] Impression: [Contusion right shoulder] Plan: [Were providing him with 18 [place] one by mouth every 4 hours when necessary plus placing him in a sling in after a week to 10 days if he still having a lot of trouble with that shoulder as far as dysfunction range of motion he's to follow-up in the clinic] Definitive disposition and diagnosis as appropriate pending reevaluation and review of above. - Related Data Allergies Allergy/AdvReac Type Severity Reaction Status Date / Time tramadol HCl [From Ultram] Allergy Severe Hives Verified 10/28/16 08:35 Home Meds: Home Meds Omeprazole [priLOSEC OTC] 20 mg PO DAILY 09/08/13 [History] Calcium Carbonate/Vitamin D3 [Caltrate 600+D 1500 MG-400 Units] 1 tab PO BID # 60 tablet 09/28/16 [Rx] Aspirin [Adult Low Dose Aspirin EC] 81 mg PO DAILY 10/02/16 [History] Past Medical History HEENT History: Reports: Cataract, Impaired Vision Cardiovascular History: Reports: Afib, Other (See Below) Other Cardiovascular History: orthostatic hypotension Gastrointestinal History: Reports: GERD, Hiatal Hernia Genitourinary History: Reports: Pyelonephritis, Renal Calculus Musculoskeletal History: Reports: Fracture, Osteoarthritis Endocrine/Metabolic History: Reports: Obesity/BMI 30+ Hematologic History: Reports: Anemia, Blood Transfusion(s) - Infectious Disease History Infectious Disease History: Reports: Chicken Pox, Measles - Past Surgical History HEENT Surgical History: Reports: Cataract Surgery, Tonsillectomy Neurological Surgical History: Reports: Laminectomy, Spinal Fusion Musculoskeletal Surgical History: Reports: Arthroscopic Knee, Knee Replacement, Other (See Below) Other Musculoskeletal Surgeries/Procedures:: left elbow-staph infection Social & Family History - Tobacco Use Smoking Status *Q: Never Smoker Years of Tobacco use: 3 Packs/Tins Daily: 0.5 Second Hand Smoke Exposure: No - Caffeine Use Caffeine Use: Reports: None - Alcohol Use Days Per Week of Alcohol Use: 0 - Recreational Drug Use Recreational Drug Use: No Review of Systems - Review of Systems Review Of Systems: ROS reveals no pertinent complaints other than HPI. ED EXAM, GENERAL - Physical Exam Exam: See Below Course - Vital Signs Last Recorded V/S: Last Vital Signs Temp 35.9 C 01/21/17 18:31 Pulse 92 01/21/17 18:31 Resp 16 01/21/17 18:31 BP 144/86 H 01/21/17 18:31 Pulse Ox 97 01/21/17 18:31 - Orders/Labs/Meds Orders: Active Orders 24 hr Category Date Time Status Shoulder Comp Rt [CR] Stat Exams 01/21/17 18:39 Taken Departure - Departure Time of Disposition: 19:23 Disposition: Home, Self-Care 01 Condition: Good Clinical Impression: Contusion of right shoulder Qualifiers: Encounter type: initial encounter Qualified Code(s): S40.011A - Contusion of right shoulder, initial encounter - Discharge Information Referrals: Man Hyanes MD [Primary Care Provider] - Additional Instructions: As per our discussion I would recommend that you follow-up with your primary doctor in 7-10 days if you're still having trouble with the function of that shoulder and its range of motion. Hopefully by then you will be doing better. If not it could be that physical therapy would be warranted and your doctor can order that for you. In addition to the medication I'm providing for pain you can use the pain medication that you mentioned and ice the shoulder. - My Orders Last 24 Hours: My Active Orders 01/21/17 18:39 Shoulder Comp Rt [CR] Stat - Assessment/Plan Last 24 Hours: My Active Orders 01/21/17 18:39 Shoulder Comp Rt [CR] Stat
--- NOTE | 2017-01-23 11:51 | CR ---
Mild-moderate glenohumeral joint degenerative change. Mild AC joint hypertrophy. No fracture.
== END 2017-01-21 19:40 | disposition home or self-care (01) ==
LOC: JP.ED 17:15
DX: S40.011A Contusion of right shoulder, initial encounter (principal); I48.91 Unspecified atrial fibrillation; K21.9 Gastro-esophageal reflux disease without esophagitis; M19.90 Unspecified osteoarthritis, unspecified site; E66.9 Obesity, unspecified; Z79.82 Long term (current) use of aspirin; Z98.890 Other specified postprocedural states; Z98.49 Cataract extraction status, unspecified eye; Z96.659 Presence of unspecified artificial knee joint; Z88.8 Allergy status to other drugs, medicaments and biological substances; Z79.899 Other long term (current) drug therapy; W22.8XXA Striking against or struck by other objects, initial encounter
CPT/HCPCS: 73030-26-RT; 73030-RT; 99283; 99284